=== PATIENT | male | born 1970 | race Caucasian/White ===

== ENCOUNTER 2021-12-27 12:22 | Emergency (ER) | payer SELFPAY ==
[2021-12-27 12:33] VITALS: BP 139/69; PULSE 69; TEMP 98; BMI 32.3
== END 2021-12-27 13:21 | disposition home or self-care (01) ==
LOC: JER 12:22 → JERFT 12:22
DX: H11.31 Conjunctival hemorrhage, right eye (principal)
CPT/HCPCS: 99283-25